=== PATIENT | male | born 1945 | race Caucasian/White ===

== ENCOUNTER 2023-06-11 09:12 | Emergency (ER) | payer OTHER, SELFPAY ==
[2023-06-11 09:21] VITALS: BP 167/80; PULSE 68; RESP 16; TEMP 36; O2SAT 98; BMI 37.1
--- NOTE | 2023-06-11 09:41 | ED_ITS ---
HPI - General Adult General Chief complaint: Extremity Pain/Injury, Upper Stated complaint: Pain in R arm and lower back Time Seen by Provider: 06/11/23 09:21 History of Present Illness HPI narrative: This 77-year-old male comes in reporting diffuse low back pain over the past couple months. He also has had a lump on the lateral aspect of his right upper extremity that is been present for several months at least. He does not report any specific injury event or strenuous activity. He states that he was golfing a few months ago which she does not normally do. He did develop some pain in his low back after doing this. 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 He does not have any pain radiating down his extremities. Related Data Previous Rx's Medication Instructions Recorded cyclobenzaprine 10 mg tablet 10 mg PO TID #15 tabs 06/11/23 ketorolac 10 mg tablet 10 mg PO Q8H 5 days #15 tabs 06/11/23 Allergies Allergy/AdvReac Type Severity Reaction Status Date / Time No Known Drug Allergies Allergy Verified 06/11/23 09:23 Review of Systems Status of ROS: Reports: 10 or more systems reviewed and unremarkable except as noted in History and below Narrative: Constitutional: No fevers, no weight gain or loss. Eyes: No discharge. No vision changes. HENT: No congestion, no sore throat, no ear pain. Cardiovascular: No chest pain, no palpitations. Respiratory: No shortness of breath, no wheezes, no cough. Gastrointestinal: No abdominal pain, no vomiting, no diarrhea. Genitourinary: No dysuria, no hematuria. Musculoskeletal: Normal range of motion. Diffuse low back pain as described above. Skin: No rashes, no pruritis. Neurological: No dizziness, weakness, sensory change, speech change. Endo/Heme/Allergies: No bruising or bleeding. No polydipsia. Pysch: no suicidality, no anxiety, no insomnia. All other systems reviewed and are negative. PFSH PFSH Social History Smoking Status: Never smoker Second hand tobacco smoke exposure: No How often do you have a drink containing alcohol: 4 or more times a week How many standard drinks containing alcohol do you have on a typical day: 1 or 2 How often do you have six or more drinks on one occasion: Never AUDIT-C Alcohol total score: 4 Non-prescribed substance use: denies use Exam Narrative: Exam Narrative: Constitutional: Well-developed, well-nourished, no acute distress. HEENT: Normocephalic, atraumatic. Neck: Normal range of motion. Nontender. Supple. Heart: Regular. No murmurs. Normal rate. Intact distal pulses. Lungs: Clear to auscultation. No chest discomfort. No wheezes, rhonchi, or rales. Abdomen: Normal bowel sounds. Nontender. No rebound tenderness. Genitalia: Deferred. Back: No midline tenderness. Normal range of motion. Pain is localized in the low back region just right of midline. There is no radiating pain down either leg. Straight leg raise is negative bilaterally. Extremities: Normal range of motion. No injury. A spongy soft lump is noted overlying the right deltoid muscle of the right upper extremity. This is movable with a well-defined border typical of a lipoma. Skin: Intact. No rash. Warm. No erythema or pallor. Neurologic: No altered sensation. No weakness. Alert and oriented. Psychiatric: No suicidality. No anxiety or depression. No insomnia. Nursing notes and vitals signs are reviewed. Const: Vital Signs, click to edit/add: Vital Signs - 24 hr 06/11/23 09:21 Temperature 96.8 F L Pulse Rate [Pulse Oximeter] 68 Respiratory Rate 16 Blood Pressure [Ri ght Upper Arm] 167/80 H Pulse Oximetry 98 Oxygen Delivery Me thod Room Air Course Vital Signs Vital signs: Initial Vital Signs Temperature 96.8 F L 06/11/23 09:21 Temperature Source Temporal Artery Scan 06/11/23 09:21 Pulse Rate 68 06/11/23 09:21 Respiratory Rate 16 06/11/23 09:21 Blood Pressure 167/80 H 06/11/23 09:21 Blood Pressure Mean 109 H 06/11/23 09:21 Blood Pressure Position Sitting 06/11/23 09:21 Pulse Oximetry 98 06/11/23 09:21 Oxygen Delivery Method Room Air 06/11/23 09:21 Vital Signs Temperature 96.8 F L 06/11/23 09:21 Pulse Rate 68 06/11/23 09:21 Respiratory Rate 16 06/11/23 09:21 Blood Pressure 167/80 H 06/11/23 09:21 Pulse Oximetry 98 06/11/23 09:21 Oxygen Delivery Method Room Air 06/11/23 09:21 Temperature 96.8 F L 06/11/23 09:21 Pulse Rate 68 06/11/23 09:21 Respiratory Rate 16 06/11/23 09:21 Blood Pressure 167/80 H 06/11/23 09:21 Pulse Oximetry 98 06/11/23 09:21 Oxygen Delivery Method Room Air 06/11/23 09:21 Medical Decision Making MDM Narrative Medical decision making narrative: This patient comes in with concerns about his lump in his right upper arm and low back pain. There was no specific injury event that requires imaging at this time. As for the lump in his right upper arm it is very typical of a lipoma. I stated that x-ray imaging will not help us for either of these matters. I did discuss an option of doing an ultrasound of his right upper extremity which the patient declined. His low back pain is likely myofascial muscle strain. He did received prescriptions for Toradol and Flexeril. Discharge Plan Discharge Clinical Impression: Low back pain, Lipoma Patient Disposition: Home, Self-Care Condition: Stable Additional Instructions: Take medication as needed and directed. Activity as tolerated. Follow up with primary physician as needed or return if worsening. Prescriptions: New cyclobenzaprine 10 mg tablet 10 mg PO TID Qty: 15 0RF ketorolac 10 mg tablet 10 mg PO Q8H 5 Days Qty: 15 0RF Stand Alone Forms: [employer] Info Instructions
== END 2023-06-11 10:02 | disposition home or self-care (01) ==
PROVIDERS: Emergency Provider Emergency Medicine Emergency Medical Services
DX: D17.21 Benign lipomatous neoplasm of skin and subcutaneous tissue of right arm (principal); M54.50 Low back pain, unspecified
CPT/HCPCS: 99283; 99284

== ENCOUNTER 2024-04-12 14:41 | Outpatient (CLI) | payer OTHER, SELFPAY ==
--- OUTSIDE RECORDS SUMMARY | 2024-04-12 14:45 | XMS_ITS | Continuity of Care Document ---
Author Name [facility] Organization [facility] Care Team Providers Care Car Blocker Name Role Phone [facility] Unavailable Unavailable Problems Combined list of problems from Department of Defense and Veterans Affairs facilities. It does not include entries that were removed or entered in error. Problem Status Onset Date Problem Type Date of Resolution Comments Source Anxiety (SCT 72734269) Active Condition [facility] Anxiousness (SNOMED CT 78030075) Active Condition [facility] Atypical Chest Pain (ICD-9-CM 786.59) Active Condition [facility] Chronic kidney disease stage 3 Active Condition [facility] Deep venous thrombosis of lower extremity Active Condition [facility] Depressive Disorder NEC (ICD-9-CM 311.) Active Condition [facility] Erectile Dysfunction (SCT 983696293) Active Condition [facility] Erectile dysfunction (SNOMED CT 505669790) Active Condition [facility] Exposure to potentially hazardous substance (SCT 572931710131966) Active Condition Dec 19 4 Entered By: MARGARITA VIERA Comment: Entered automatically through CARLO Problem List documentation program [facility] Generalized Anxiety Disorder * (ICD-9-CM 300.02) Active Condition [facility] Lipidemia (SNOMED CT 02203654) Active Condition [facility] Major depressive disorder (SNOMED CT 816099783) Active Condition [facility] Mixed Hyperlipidemia (SCT 710750927) Active Condition [facility] Obesity Active Condition [facility] Obstructive Sleep Apnea of Adult (SCT 8306050788661) Active Condition [facility] Obstructive sleep apnea of adult (SNOMED CT 8383661573475) Active Condition [facility] Other and unspecified Sleep Apnea Active Condition [facility] Overweight (SNOMED CT 995529518) Active Condition [facility] Sensorineural hearing loss Active Condition [facility] Subjective tinnitus Active Condition [facility] Viral upper respiratory tract infection Inactive Condition 09/30/2022 [facility] Diagnosis: ICD-10-CM H25.13 Age-related nuclear cataract, bilateral Active Diagnosis [facility] Diagnosis: ICD-10-CM E66.9 Obesity, unspecified Active Diagnosis [facility] Diagnosis: ICD-10-CM Z71.3 Dietary counseling and surveillance Active Diagnosis [facility] Diagnosis: ICD-10-CM N52.9 Male erectile dysfunction, unspecified Active Diagnosis [facility] Diagnosis: ICD-10-CM G47.33 Obstructive sleep apnea (adult) (pediatric) Active Diagnosis [facility] Diagnosis: ICD-10-CM H25.813 Combined forms of age-related cataract, bilateral Active Diagnosis [facility] Medications Combined list of outpatient medications from Department of Defense and Veterans Affairs facilities.Medications provided include 1) outpatient medications from the last 15 months, and 2) patient-reported medications. Medication Details Route Status Patient Instructions Prescription Expires Prescription Number Last Dispense Date Ordering Provider Order Date Order Qty Source ASPIRIN 81MG TAB,EC ASPIRIN 81MG TAB,EC Non-VA TAKE ONE TABLET BY MOUTH Jul 14, 2017 [facility] Document ed by: ALYSA ESPARZA Document ed at: [facility] ORAL ACTIVE Deisy ESPARZA 2016 [facility] HC 1%/NEOMYCIN /POLYMYXIN SUSP,OTIC HC 1%/NEOMY WHTINEY/POLY MYXIN SUSP,DEANNE C Non-VA INSTILL 4 DROPS IN EAR(S) FOUR TIMES A DAY Apr 13, 2018 Non-VA Document ed by: CARLITO GOINS Document ed at: [facility] FRANCO GOINS 2017 [facility] SILDENAFIL CITRATE 100MG TAB SILDENAF [place] CITRATE 100MG TAB Active TAKE ONE-HALF TABLET BY MOUTH ONE HOUR BEFORE SEXUAL RELATION S - FOR ERECTILE DYSFUNCT ION DO NOT TAKE MORE THAN 1 DOSE PER DAY (*90 DAY SUPPLY*) FOR ERECTILE DYSFUNCT ION Sep 30, 2023 9 Sep 30, 2024 [id number] Mar 22, 2024 [facility] 09/30/2024 [id number] VIRA RUFF 2023 [facility] SILDENAFIL CITRATE 100MG TAB SILDENAF [place] CITRATE 100MG TAB Disconti nued TAKE ONE-HALF TABLET BY MOUTH ONE HOUR BEFORE SEXUAL RELATION S - FOR ERECTILE DYSFUNCT ION DO NOT TAKE MORE THAN 1 DOSE PER DAY (*90 DAY SUPPLY*) FOR ERECTILE DYSFUNCT ION Sep 30, 2022 9 Oct 01, 2023 [id number] Sep 19, 2023 [facility] DISCONT INUED 10/01/2023 [id number] Stevan WHITT 2022 9 [facility] SIMVASTATIN 40MG TAB SIMVASTA TIN 40MG TAB Active TAKE ONE TABLET BY MOUTH DAILY AT BEDTIME FOR CHOLESTE ROL FOR CHOLESTE ROL Sep 30, 2023 90 Sep 30, 2024 [id number] A Feb 21, 2024 Ryan RUFF [facility] ORAL ACTIVE 09/30/2024 [id number] VIRA RUFF 2023 90 [facility] [facility] SIMVASTATIN 40MG TAB SIMVASTA TIN 40MG TAB Disconti nued TAKE ONE TABLET BY MOUTH DAILY AT BEDTIME FOR CHOLESTE ROL FOR CHOLESTE ROL Sep 30, 2022 90 Oct 01, 2023 [id number] Aug 23, 2023 [facility] DISCONT INUED 10/01/2023 [id number] Stevan WHITT 2022 90 [facility] Allergies, Adverse Reactions, Alerts Combined list of allergies from Department of Defense and Veterans Affairs facilities. It does not include entries that were removed or entered in error. Substance Category Reaction Severity Reaction type Status Date Reported Comments Source VARDENAFIL Propensity to adverse reactions to drug (finding) Dizziness active 08/14/2015 [facility] Immunizations Combined list of available immunizations from the Department of Defense and Veterans Affairs facilities. Immunization Series Date Given Administered By Site Reaction Lot Number CVX Code Drug Sql Server Bi Developer Status Comments Source PNEUMOCOCCAL CONJUGATE PCV20, POLYSACCHARID E [id number] CONJUGATE, ADJUVANT, PF 2023 Graham ALEMAN RIGHT DELTO ID [id number] 216 complet ed [facility] RSV, BIVALENT, PROTEIN SUBUNIT RSVPREF, DILUENT RECONSTITUTED , 0.5 ML, PF 1 2023 Graham ALEMANDORINA Arechiga LEFT DELTO ID [id number] 305 complet ed [facility] COVID-19 (MODERNA), MRNA, LNP-S, PF, 50 MCG/0.5 ML (AGES 12+ YEARS) 1 2022 312 complet ed [facility] same time as flu shot [facility] INFLUENZA, UNSPECIFIED FORMULATION 2022 88 complet ed [facility] INFLUENZA, INJECTABLE, QUADRIVALENT, PRESERVATIVE FREE 2021 150 complet ed [facility] COVID-19 (MODERNA), MRNA, LNP-S, PF, 100 MCG/0.5ML DOSE OR 50 MCG/0.25ML DOSE 3 2021 LEFT DELTO ID 207 complet ed Lot#: [id number] Mfr: [employer] , [employer] [facility] INFLUENZA, INJECTABLE, QUADRIVALENT, PRESERVATIVE FREE 2020 150 complet ed [facility] ZOSTER RECOMBINANT 2 2020 187 complet ed [facility] ZOSTER RECOMBINANT 1 2020 187 complet ed [facility] COVID-19 (MODERNA), MRNA, LNP-S, PF, 100 MCG/0.5ML DOSE OR 50 MCG/0.25ML DOSE 2 2020 LEFT DELTO ID 207 complet ed Lot#: [id number] Mfr: MODERNA , INCErlinda ROJAS [facility] COVID-19 (MODERNA), MRNA, LNP-S, PF, 100 MCG/0.5ML DOSE OR 50 MCG/0.25ML DOSE 1 2020 LEFT DELTO ID 207 complet ed Lot#: [id number] Mfr: MODERNA , INCErlinda ROJAS [facility] INFLUENZA, INJECTABLE, QUADRIVALENT, PRESERVATIVE FREE 2019 150 complet ed [facility] INFLUENZA, SEASONAL, INJECTABLE, PRESERVATIVE FREE 2018 140 complet ed [place] [facility] INFLUENZA, SEASONAL, INJECTABLE, PRESERVATIVE FREE 2017 140 complet ed [facility] PNEUMOCOCCAL POLYSACCHARID E PPV23 2017 33 complet ed [employer] Lot # [id number] Exp date 09/18/19 [facility] TDAP 2017 115 complet ed [employer] lot # [id number] exp date 06/14/20 [facility] PNEUMOCOCCAL POLYSACCHARID E PPV23 2017 RIGHT DELTO ID 33 complet ed Lot#: [id number] Mfr: [employer] Expiratio n Date: 09/18/19 [facility] INFLUENZA, HIGH DOSE SEASONAL 2016 135 complet ed [facility] INFLUENZA, HIGH DOSE SEASONAL 2015 135 complet ed [facility] PNEUMOCOCCAL CONJUGATE PCV 13 2015 133 complet ed [email or web address] Pharmacut ical, Lot [id number], Exp 06/29 [facility] INFLUENZA, UNSPECIFIED FORMULATION 2015 88 complet ed [facility] INFLUENZA, HIGH DOSE SEASONAL 2014 135 complet ed [facility] INFLUENZA, UNSPECIFIED FORMULATION 2013 88 complet ed [facility] INFLUENZA, UNSPECIFIED FORMULATION 2012 88 complet ed [facility] INFLUENZA, UNSPECIFIED FORMULATION 2011 88 complet ed [facility] INFLUENZA, UNSPECIFIED FORMULATION 2010 88 complet ed [facility] 2010 121 complet ed merck [id number] 5-1-12 [facility] INFLUENZA, UNSPECIFIED FORMULATION 2008 88 complet ed [facility] INFLUENZA, UNSPECIFIED FORMULATION 2007 88 complet ed [facility] INFLUENZA, UNSPECIFIED FORMULATION 2006 88 complet ed [facility] TD(ADULT) UNSPECIFIED FORMULATION 2004 139 complet ed [facility] Results Combined list of recent chemistry, hematology and other laboratory results from Department of Defense and Veterans Affairs, ranging from 15 months to all on record, depending upon the facility. Order Name Results Value Reference Range Date Interpretation Specimen Comments Source HGB A1C HEMOGLOBIN A1C/HEMOGL OBIN.TOTAL IN BLOOD 5.3 4.2 - 6.2 09/23 Specimen Type: BLOOD Comment: HGB A1C: Values obtained from A1C measurement s can vary. HGB A1C: For typical A1C assays, a reported value HBG A1C: of 7.0 could actually be between 6.72 and 7.28 HGB A1C: if measured by a reference method. A reported value of 9.0 HGB A1C: could actually be between 8.73 and 9.27. HGB A1C: Ref: http://www. ngsp.org/[place] Pdata.asp Ordering Provider: GISELE WHITT Report Released Date/Time: Sep 30, 2022 09:57 AM Reporting Lab: [facility] [address] [address] Performing Lab: [facility] [address] [address] [facility] LIPID PANEL A, non-fast ing CHOLESTERO L [MASS/VOLU ME] IN SERUM OR PLASMA 164 mg/dL 09/23 Specimen Type: PLASMA Comment: See EVAL Ordering Provider: GISELE WHITT Report Released Date/Time: Sep 30, 2022 09:57 AM Reporting Lab: [facility] [address] [address] Performing Lab: Ladonna [facility] [address] [address] [facility] LIPID PANEL A, non-fast ing CHOLESTERO L IN HDL [MASS/VOLU ME] IN SERUM OR PLASMA 37 mg/dL 09/23 L Specimen Type: PLASMA Comment: See EVAL Ordering Provider: GISELE WHITT Report Released Date/Time: Sep 30, 2022 09:57 AM Reporting Lab: [facility] [address] [address] Performing Lab: Ladonna [facility] [address] [address] [facility] LIPID PANEL A, non-fast ing CHOLESTERO L IN LDL [MASS/VOLU ME] IN SERUM OR PLASMA BY DIRECT ASSAY 95 mg/dL 09/23 Specimen Type: PLASMA Comment: See EVAL Ordering Provider: GISELE WHITT Report Released Date/Time: Sep 30, 2022 09:57 AM Reporting Lab: [facility]onna RO[facility] [place] [address] Performing Lab: Ladonna ROJAS [facility] [place] [id number] LIPID PANEL A, non-fast ing CHOLESTERO L.TOTAL/CH OLESTEROL IN HDL [MASS RATIO] IN SERUM OR PLASMA 4.4 0 - 4.9 09/23 Specimen Type: PLASMA Comment: See EVAL Ordering Provider: GISELE WHITT Report Released Date/Time: Sep 30, 2022 09:57 AM Reporting Lab: [facility] [place] [address] Performing Lab: Ladonna ROJ[facility] [address] TSH SCREEN PANEL THYROTROPI N [UNITS/VOL UME] IN SERUM OR PLASMA 1.09 u[IU]/mL 0.46 - 3.59 09/23 Specimen Type: SERUM No comment entered. Ordering Provider: GISELE WHITT Report Released Date/Time: Sep 30, 2022 09:57 AM Reporting Lab: Ladonna [facility] [place] [address] Performing Lab: Ladonna ROJ[facility] [address] CBC (AUTO DIFF) LEUKOCYTES [#/VOLUME] IN BLOOD 9.5 10*3/uL 4.00 - 10.60 09/23 Specimen Type: BLOOD No comment entered. Ordering Provider: GISELE WHITT Report Released Date/Time: Sep 30, 2022 09:57 AM Reporting Lab: Ladonna [facility] [place] [address] Performing Lab: Ladonna RO[facility] [place] [address] [place] [address] CBC (AUTO DIFF) ERYTHROCYT ES [#/VOLUME] IN BLOOD BY AUTOMATED COUNT 4.31 10*6/uL 4.23 - 5.75 09/23 Specimen Type: BLOOD No comment entered. Ordering Provider: GISELE WHITT Report Released Date/Time: Sep 30, 2022 09:57 AM Reporting Lab: Ladonna RO[facility] [place] [phone] Performing Lab: Ladonna RO[facility] [place] [phone] [facility] CBC (AUTO DIFF) HEMOGLOBIN [MASS/VOLU ME] IN BLOOD 14.2 g/dL 12.8 - 17.0 09/23 Specimen Type: BLOOD No comment entered. Ordering Provider: GISELE WHITT Report Released Date/Time: Sep 30, 2022 09:57 AM Reporting Lab: Ladonna [facility] [place] [phone] Performing Lab: Ladonna RO[facility] [place] [phone] [facility] CBC (AUTO DIFF) HEMATOCRIT [VOLUME FRACTION] OF BLOOD 41.3 %{vol} 39.3 - 50.0 09/23 Specimen Type: BLOOD No comment entered. Ordering Provider: GISELE WHITT Report Released Date/Time: Sep 30, 2022 09:57 AM Reporting Lab: [facility]onna [facility] [place] [phone] Performing Lab: Ldaonna [facility] [place] [phone] [facility] CBC (AUTO DIFF) MCV [ENTITIC VOLUME] BY AUTOMATED COUNT 95.8 fL 79.7 - 99.5 09/23 Specimen Type: BLOOD No comment entered. Ordering Provider: GISELE WHITT Report Released Date/Time: Sep 30, 2022 09:57 AM Reporting Lab: [facility] [address] [address] Performing Lab: Ladonna ROJAS [facility] [place] [id number] CBC (AUTO DIFF) MCH [ENTITIC MASS] BY AUTOMATED COUNT 32.9 pg 25.5 - 33.6 09/23 Specimen Type: BLOOD No comment entered. Ordering Provider: GISELE WHITT Report Released Date/Time: Sep 30, 2022 09:57 AM Reporting Lab: [facility]onna [facility] [place] [phone] Performing Lab: Ladonna RO[facility] [place] [phone] [place] [address] CBC (AUTO DIFF) MCHC [MASS/VOLU ME] BY AUTOMATED COUNT 34.4 g/dL 30.9 - 35.1 09/23 Specimen Type: BLOOD No comment entered. Ordering Provider: GISELE WHITT Report Released Date/Time: Sep 30, 2022 09:57 AM Reporting Lab: [facility] [place] [phone] Performing Lab: Ladonna [facility] [place] [phone] [facility] CBC (AUTO DIFF) PLATELETS [#/VOLUME] IN BLOOD BY AUTOMATED COUNT 204 10*3/uL 160 - 410 09/23 Specimen Type: BLOOD No comment entered. Ordering Provider: GISELE WHITT Report Released Date/Time: Sep 30, 2022 09:57 AM Reporting Lab: [facility] [place] [phone] Performing Lab: Ladonna [facility] [place] [phone] [facility] CBC (AUTO DIFF) ERYTHROCYT E DISTRIBUTI ON WIDTH [RATIO] BY AUTOMATED COUNT 42.7 fL 37.1 - 49.0 09/23 Specimen Type: BLOOD No comment entered. Ordering Provider: GISELE WHITT Report Released Date/Time: Sep 30, 2022 09:57 AM Reporting Lab: [facility] [place] [phone] Performing Lab: Ladonna [facility] [place] [phone] [facility] CBC (AUTO DIFF) PLATELET MEAN VOLUME [ENTITIC VOLUME] IN BLOOD BY AUTOMATED COUNT 8.9 fL 8.9 - 12.3 09/23 Specimen Type: BLOOD No comment entered. Ordering Provider: GISELE WHITT Report Released Date/Time: Sep 30, 2022 09:57 AM Reporting Lab: [facility] [place] [phone] Performing Lab: Ladonna RO[facility] [place] [phone] [place] [address] CBC (AUTO DIFF) NUCLEATED ERYTHROCYT ES [#/VOLUME] IN BLOOD BY AUTOMATED COUNT 0.00 10*3/uL 0.00 - 0.12 09/23 Specimen Type: BLOOD No comment entered. Ordering Provider: GISELE WHITT Report Released Date/Time: Sep 30, 2022 09:57 AM Reporting Lab: [facility] [place] [phone] Performing Lab: Ladonna RO[facility] [place] [phone] [place] [address] CBC (AUTO DIFF) NUCLEATED ERYTHROCYT ES [PRESENCE] IN BLOOD BY AUTOMATED COUNT 0.0 /100{WBC s} 0.0 - 0.2 09/23 Specimen Type: BLOOD No comment entered. Ordering Provider: GISELE WHITT Report Released Date/Time: Sep 30, 2022 09:57 AM Reporting Lab: [facility] [place] [phone] Performing Lab: Ladonna RO[facility] [place] [phone] [place] [address] CBC (AUTO DIFF) NEUTROPHIL S [#/VOLUME] IN BLOOD BY AUTOMATED COUNT 6.32 10*3/uL 2.2 - 7.4 09/23 Specimen Type: BLOOD No comment entered. Ordering Provider: GISELE WHITT Report Released Date/Time: Sep 30, 2022 09:57 AM Reporting Lab: [facility] [place] [phone] Performing Lab: Ladonna ROJ[facility] [place] [address] [place] [address] CBC (AUTO DIFF) LYMPHOCYTE S [#/VOLUME] IN BLOOD BY AUTOMATED COUNT 1.98 10*3/uL 1.0 - 3.7 09/23 Specimen Type: BLOOD No comment entered. Ordering Provider: GISELE WHITT Report Released Date/Time: Sep 30, 2022 09:57 AM Reporting Lab: [facility] [place] [address] Performing Lab: Ladonna RO[facility] [address] CBC (AUTO DIFF) MONOCYTES [#/VOLUME] IN BLOOD BY AUTOMATED COUNT 0.78 10*3/uL 0.3 - 0.9 09/23 Specimen Type: BLOOD No comment entered. Ordering Provider: GISELE WHITT Report Released Date/Time: Sep 30, 2022 09:57 AM Reporting Lab: [facility] [place] [address] Performing Lab: Ladonna [facility] [address] CBC (AUTO DIFF) EOSINOPHIL S [#/VOLUME] IN BLOOD BY AUTOMATED COUNT 0.19 10*3/uL 0.0 - 0.5 09/23 Specimen Type: BLOOD No comment entered. Ordering Provider: GISELE WHITT Report Released Date/Time: Sep 30, 2022 09:57 AM Reporting Lab: [facility] [place] [phone] Performing Lab: Ladonna [facility] [place] [address] [place] [address] CBC (AUTO DIFF) BASOPHILS [#/VOLUME] IN BLOOD BY AUTOMATED COUNT 0.06 10*3/uL 0.0 - 0.1 09/23 Specimen Type: BLOOD No comment entered. Ordering Provider: GISELE WHITT Report Released Date/Time: Sep 30, 2022 09:57 AM Reporting Lab: [facility] [place] [phone] Performing Lab: Ladonna ROJ[facility] [address] [address] [facility] CBC (AUTO DIFF) NEUTROPHIL S/100 LEUKOCYTES IN BLOOD 66.3 39.3 - 73.5 09/23 Specimen Type: BLOOD No comment entered. Ordering Provider: GISELE WHITT Report Released Date/Time: Sep 30, 2022 09:57 AM Reporting Lab: [facility] [place] [phone] Performing Lab: Ladonna RO[facility] [place] [phone] [facility] CBC (AUTO DIFF) LYMPHOCYTE S/100 LEUKOCYTES IN BLOOD BY AUTOMATED COUNT 20.8 16.2 - 48.2 09/23 Specimen Type: BLOOD No comment entered. Ordering Provider: GISELE WHITT Report Released Date/Time: Sep 30, 2022 09:57 AM Reporting Lab: [facility] [place] [phone] Performing Lab: Ladonna RO[facility] [place] [phone] [facility] CBC (AUTO DIFF) MONOCYTES/ 100 LEUKOCYTES IN BLOOD BY AUTOMATED COUNT 8.2 5.2 - 11.4 09/23 Specimen Type: BLOOD No comment entered. Ordering Provider: GISELE WHITT Report Released Date/Time: Sep 30, 2022 09:57 AM Reporting Lab: [facility] [address] [address] Performing Lab: Ladonna [facility] [address] [address] [facility] CBC (AUTO DIFF) EOSINOPHIL S/100 LEUKOCYTES IN BLOOD BY AUTOMATED COUNT 2.0 0.4 - 7.6 09/23 Specimen Type: BLOOD No comment entered. Ordering Provider: GISELE WHITT Report Released Date/Time: Sep 30, 2022 09:57 AM Reporting Lab: [facility] [place] [address] Performing Lab: Ladonna [facility] [address] CBC (AUTO DIFF) BASOPHILS/ 100 LEUKOCYTES IN BLOOD BY AUTOMATED COUNT 0.6 0.1 - 1.2 09/23 Specimen Type: BLOOD No comment entered. Ordering Provider: GISELE WHITT Report Released Date/Time: Sep 30, 2022 09:57 AM Reporting Lab: [facility] [place] [address] Performing Lab: Ladonna [facility] [address] CBC (AUTO DIFF) IMMATURE GRANULOCYT ES [#/VOLUME] IN BLOOD BY AUTOMATED COUNT 0.20 10*3/uL 0.0 - 0.1 09/23 H Specimen Type: BLOOD No comment entered. Ordering Provider: GISELE WHITT Report Released Date/Time: Sep 30, 2022 09:57 AM Reporting Lab: [facility] [place] [address] Performing Lab: Ladonna [facility] [address] CBC (AUTO DIFF) IMMATURE GRANULOCYT ES/100 LEUKOCYTES IN BLOOD 2.1 0.0 - 0.7 09/23 H Specimen Type: BLOOD No comment entered. Ordering Provider: GISELE WHITT Report Released Date/Time: Sep 30, 2022 09:57 AM Reporting Lab: [facility] [place] [address] Performing Lab: Ladonna RO[facility] [place] [address] [place] [address] CBC (AUTO DIFF) SERVICE COMMENT DONE 09/23 Specimen Type: BLOOD No comment entered. Ordering Provider: JOSE EDUARDO,GISELE IE L Report Released Date/Time: Sep 30, 2022 09:57 AM Reporting Lab: [facility] [address] [phone] Performing Lab: [facility] [address] [address] [facility] COMPREHE NSIVE METABOLI C PANEL SODIUM [MOLES/VOL UME] IN SERUM OR PLASMA 143 meq/L 136 - 144 09/23 Specimen Type: PLASMA Comment: See EVAL Ordering Provider: GISELE WHITT Report Released Date/Time: Sep 30, 2022 09:57 AM Reporting Lab: [facility] [address] [address] Performing Lab: Ladonna [facility] [address] [address] [facility] COMPREHE NSIVE METABOLI C PANEL POTASSIUM [MOLES/VOL UME] IN SERUM OR PLASMA 4.2 meq/L 3.6 - 5.1 09/23 Specimen Type: PLASMA Comment: See EVAL Ordering Provider: GISELE WHITT Report Released Date/Time: Sep 30, 2022 09:57 AM Reporting Lab: [facility] [address] [address] Performing Lab: [facility] [address] [address] [facility] COMPREHE NSIVE METABOLI C PANEL CHLORIDE [MOLES/VOL UME] IN SERUM OR PLASMA 107 meq/L 98 - 107 09/23 Specimen Type: PLASMA Comment: See EVAL Ordering Provider: GISELE WHITT Report Released Date/Time: Sep 30, 2022 09:57 AM Reporting Lab: [facility] [address] [address] Performing Lab: [facility] [address] [address] [facility] COMPREHE NSIVE METABOLI C PANEL CARBON DIOXIDE, TOTAL [MOLES/VOL UME] IN SERUM OR PLASMA 26 meq/L 22 - 32 09/23 Specimen Type: PLASMA Comment: See EVAL Ordering Provider: GISELE WHITT Report Released Date/Time: Sep 30, 2022 09:57 AM Reporting Lab: [facility] [address] [address] Performing Lab: [facility] [address] [address] [facility] COMPREHE NSIVE METABOLI C PANEL ANION GAP IN SERUM OR PLASMA 10 meq/L 4 - 13 09/23 Specimen Type: PLASMA Comment: See EVAL Ordering Provider: GISELE WHITT Report Released Date/Time: Sep 30, 2022 09:57 AM Reporting Lab: [facility] [address] [address] Performing Lab: [facility] [address] [address] [facility] COMPREHE NSIVE METABOLI C PANEL GLUCOSE [MASS/VOLU ME] IN SERUM OR PLASMA 101 mg/dL 72 - 105 09/23 Specimen Type: PLASMA Comment: See EVAL Ordering Provider: GISELE WHITT Report Released Date/Time: Sep 30, 2022 09:57 AM Reporting Lab: [facility] [address] [address] Performing Lab: [facility] OF [address] [address] [facility] COMPREHE NSIVE METABOLI C PANEL UREA NITROGEN [MASS/VOLU ME] IN SERUM OR PLASMA 22 mg/dL 7 - 25 09/23 Specimen Type: PLASMA Comment: See EVAL Ordering Provider: GISELE WHITT Report Released Date/Time: Sep 30, 2022 09:57 AM Reporting Lab: [facility] OF [address] [address] Performing Lab: [facility] OF [address] [address] [facility] COMPREHE NSIVE METABOLI C PANEL CREATININE [MASS/VOLU ME] IN SERUM OR PLASMA 1.34 mg/dL 0.7 - 1.3 09/23 H Specimen Type: PLASMA Comment: See EVAL Ordering Provider: GISELE WHITT Report Released Date/Time: Sep 30, 2022 09:57 AM Reporting Lab: [facility] OF [address] [address] Performing Lab: [facility] OF [place] [id number] [facility] COMPREHE NSIVE METABOLI C PANEL CALCIUM [MASS/VOLU ME] IN SERUM OR PLASMA 8.8 mg/dL 8.6 - 10.4 09/23 Specimen Type: PLASMA Comment: See EVAL Ordering Provider: GISELE WHITT Report Released Date/Time: Sep 30, 2022 09:57 AM Reporting Lab: [facility] [address] [address] Performing Lab: [facility] [address] [address] [facility] COMPREHE NSIVE METABOLI C PANEL PROTEIN [MASS/VOLU ME] IN SERUM OR PLASMA 6.7 g/dL 6.0 - 8.2 09/23 Specimen Type: PLASMA Comment: See EVAL Ordering Provider: GISELE HWITT Report Released Date/Time: Sep 30, 2022 09:57 AM Reporting Lab: [facility] [address] [address] Performing Lab: [facility] [address] [address] [facility] COMPREHE NSIVE METABOLI C PANEL ALBUMIN [MASS/VOLU ME] IN SERUM OR PLASMA 4.3 g/dL 3.5 - 5.0 09/23 Specimen Type: PLASMA Comment: See EVAL Ordering Provider: GISELE WHITT Report Released Date/Time: Sep 30, 2022 09:57 AM Reporting Lab: [facility] [address] [address] Performing Lab: [facility] [address] [address] [facility] COMPREHE NSIVE METABOLI C PANEL ALKALINE PHOSPHATAS E [ENZYMATIC ACTIVITY/V OLUME] IN SERUM OR PLASMA 93 U/L 35 - 104 09/23 Specimen Type: PLASMA Comment: See EVAL Ordering Provider: GISELE WHITT Report Released Date/Time: Sep 30, 2022 09:57 AM Reporting Lab: [facility] [address] [address] Performing Lab: [facility] [address] [address] [facility] COMPREHE NSIVE METABOLI C PANEL ASPARTATE AMINOTRANS FERASE [ENZYMATIC ACTIVITY/V OLUME] IN SERUM OR PLASMA 22 U/L 13 - 36 09/23 Specimen Type: PLASMA Comment: See EVAL Ordering Provider: GISELE WHITT Report Released Date/Time: Sep 30, 2022 09:57 AM Reporting Lab: [facility] [address] [address] Performing Lab: [facility] [address] [address] [facility] COMPREHE NSIVE METABOLI C PANEL ALANINE AMINOTRANS FERASE [ENZYMATIC ACTIVITY/V OLUME] IN SERUM OR PLASMA 18 U/L 7 - 49 09/23 Specimen Type: PLASMA Comment: See EVAL Ordering Provider: GISELE WHITT Report Released Date/Time: Sep 30, 2022 09:57 AM Reporting Lab: [facility] [address] [address] Performing Lab: [facility] [address] [address] [facility] COMPREHE NSIVE METABOLI C PANEL BILIRUBIN. TOTAL [MASS/VOLU ME] IN SERUM OR PLASMA 0.4 mg/dL 0.2 - 1.3 09/23 Specimen Type: PLASMA Comment: See EVAL Ordering Provider: GISELE WHITT Report Released Date/Time: Sep 30, 2022 09:57 AM Reporting Lab: [facility] [address] [address] Performing Lab: [facility] [place] [phone] [place] [address] COMPREHE NSIVE METABOLI C PANEL GLOMERULAR FILTRATION RATE/1.73 SQ M.PREDICTE D [VOLUME RATE/AREA] IN SERUM, PLASMA OR BLOOD BY CREATININE -BASED FORMULA (CKD-EPI 2020) 55 09/23 L Specimen Type: PLASMA Comment: See EVAL Ordering Provider: GISELE WHITT Report Released Date/Time: Sep 30, 2022 09:57 AM Reporting Lab: [facility] [place] [phone] Performing Lab: [facility] [place] [phone] [place] [address] URINALYS IS, REFLEX C&S IF INDICATE D COLOR OF URINE Yellow 09/23 Specimen Type: URINE Comment: Urine chemistry testing performed on [employer] MAX AX-4030. Ordering Provider: GISELE WHITT Report Released Date/Time: Sep 30, 2022 09:57 AM Reporting Lab: [facility] [address] [address] Performing Lab: [facility] [place] [phone] [facility] URINALYS IS, REFLEX C&S IF INDICATE D SPECIFIC GRAVITY OF URINE 1.031 1.001 - 1.035 09/23 Specimen Type: URINE Comment: Urine chemistry testing performed on [employer] MAX AX-4030. Ordering Provider: GISELE WHITT Report Released Date/Time: Sep 30, 2022 09:57 AM Reporting Lab: [facility] [address] [address] Performing Lab: [facility] [address] [address] [facility] URINALYS IS, REFLEX C&S IF INDICATE D PH OF URINE 5.5 5.0 - 7.0 09/23 Specimen Type: URINE Comment: Urine chemistry testing performed on [facility] AX-4030. Ordering Provider: GISELE WHITT Report Released Date/Time: Sep 30, 2022 09:57 AM Reporting Lab: [facility] [place] [address] Performing Lab: [facility] [place] [phone] [place] [address] URINALYS IS, REFLEX C&S IF INDICATE D LEUKOCYTES [#/AREA] IN URINE SEDIMENT BY MICROSCOPY HIGH POWER FIELD 2 /[HPF] 0 - 5 09/23 Specimen Type: URINE Comment: Urine chemistry testing performed on [facility] AX-403. Ordering Provider: GISELE WHITT Report Released Date/Time: Sep 30, 2022 09:57 AM Reporting Lab: [facility] [place] [phone] Performing Lab: [facility] [place] [phone] [place] [address] URINALYS IS, REFLEX C&S IF INDICATE D HYALINE CASTS [#/AREA] IN URINE SEDIMENT BY MICROSCOPY LOW POWER FIELD 2 /[LPF] - 2 09/23 Specimen Type: URINE Comment: Urine chemistry testing performed on [facility] AX-403. Ordering Provider: GISELE WHITT Report Released Date/Time: Sep 30, 2022 09:57 AM Reporting Lab: [facility] [place] [phone] Performing Lab: [facility] [place] [phone] [place] [address] URINALYS IS, REFLEX C&S IF INDICATE D ERYTHROCYT ES [#/VOLUME] IN URINE SEDIMENT BY MICROSCOPY HIGH POWER FIELD 1 /[HPF] 0 - 3 09/23 Specimen Type: URINE Comment: Urine chemistry testing performed on [facility] AX-4030. Ordering Provider: GISELE WHITT Report Released Date/Time: Sep 30, 2022 09:57 AM Reporting Lab: [facility] [address] [address] Performing Lab: [facility] [address] [address] [facility] URINALYS IS, REFLEX C&S IF INDICATE D APPEARANCE OF URINE CLEAR 09/23 Specimen Type: URINE Comment: Urine chemistry testing performed on [facility] AX-403. Ordering Provider: GISELE WHITT Report Released Date/Time: Sep 30, 2022 09:57 AM Reporting Lab: [facility] [address] [address] Performing Lab: [facility] [address] [address] [facility] URINALYS IS, REFLEX C&S IF INDICATE D ERYTHROCYT ES [PRESENCE] IN URINE Negative mg/dL 09/23 Specimen Type: URINE Comment: Urine chemistry testing performed on [facility] AX-4030. Ordering Provider: GISELE WHITT Report Released Date/Time: Sep 30, 2022 09:57 AM Reporting Lab: [facility] [address] [address] Performing Lab: [facility] [address] [address] [facility] URINALYS IS, REFLEX C&S IF INDICATE D LEUKOCYTE ESTERASE [PRESENCE] IN URINE BY TEST STRIP Negative - 25 09/23 Specimen Type: URINE Comment: Urine chemistry testing performed on [facility] AX-4030. Ordering Provider: GISELE WHITT Report Released Date/Time: Sep 30, 2022 09:57 AM Reporting Lab: [facility] [address] [address] Performing Lab: [facility] [address] [address] [facility] URINALYS IS, REFLEX C&S IF INDICATE D PROTEIN [MASS/VOLU ME] IN URINE TRACEmg/ dL - 20 09/23 Specimen Type: URINE Comment: Urine chemistry testing performed on [facility] AX-4030. Ordering Provider: GISELE WHITT Report Released Date/Time: Sep 30, 2022 09:57 AM Reporting Lab: [facility] [place] [phone] Performing Lab: [facility] [place] [phone] [place] [address] URINALYS IS, REFLEX C&S IF INDICATE D GLUCOSE [MASS/VOLU ME] IN URINE BY TEST STRIP Normalmg /dL - 50 09/23 Specimen Type: URINE Comment: Urine chemistry testing performed on [facility] AX-4030. Ordering Provider: GISELE WHITT Report Released Date/Time: Sep 30, 2022 09:57 AM Reporting Lab: [facility] [place] [phone] Performing Lab: [facility] [place] [phone] [place] [address] URINALYS IS, REFLEX C&S IF INDICATE D KETONES [MASS/VOLU ME] IN URINE BY TEST STRIP Negative mg/dL 09/23 Specimen Type: URINE Comment: Urine chemistry testing performed on [facility] AX-4030. Ordering Provider: GISELE WHITT Report Released Date/Time: Sep 30, 2022 09:57 AM Reporting Lab: [facility] [address] [address] Performing Lab: [facility] [place] [phone] [place] [address] URINALYS IS, REFLEX C&S IF INDICATE D BILIRUBIN. TOTAL [PRESENCE] IN URINE BY TEST STRIP Negative mg/dL 09/23 Specimen Type: URINE Comment: Urine chemistry testing performed on [facility] AX-4030. Ordering Provider: GISELE WHITT Report Released Date/Time: Sep 30, 2022 09:57 AM Reporting Lab: [facility] [place] [phone] Performing Lab: [facility] [address] [address] [facility] URINALYS IS, REFLEX C&S IF INDICATE D NITRITE [PRESENCE] IN URINE BY TEST STRIP Negative mg/dL 09/23 Specimen Type: URINE Comment: Urine chemistry testing performed on [employer] AX-4030. Ordering Provider: GISELE WHITT Report Released Date/Time: Sep 30, 2022 09:57 AM Reporting Lab: [facility] [address] [address] Performing Lab: [facility] [place] [phone] [facility] URINALYS IS, REFLEX C&S IF INDICATE D UROBILINOG EN [MASS/VOLU ME] IN URINE Normalmg /dL 09/23 Specimen Type: URINE Comment: Urine chemistry testing performed on [facility] AX-4030. Ordering Provider: GISELE WHITT Report Released Date/Time: Sep 30, 2022 09:57 AM Reporting Lab: [facility] [address] [address] Performing Lab: [facility] [place] [phone] [facility] DIABETIC NEPHROPA THY SCREEN MICROALBUM IN [MASS/VOLU ME] IN URINE <0.5mg/d L <1.9 - 1.9 09/23 Specimen Type: URINE Comment: UNABLE TO CALCULATE Ordering Provider: GISELE WHITT Report Released Date/Time: Aug 18, 2022 08:36 AM Reporting Lab: [facility] [address] [address] Performing Lab: [facility] [place] [phone] [facility] DIABETIC NEPHROPA THY SCREEN MICROALBUM IN/CREATIN INE [MASS RATIO] IN URINE comment <30 - 30 09/23 Specimen Type: URINE Comment: UNABLE TO CALCULATE Ordering Provider: GISELE WHITT Report Released Date/Time: Aug 18, 2022 08:36 AM Reporting Lab: [facility] [place] [phone] Performing Lab: [facility] [place] [id number] [place] [address] DIABETIC NEPHROPA THY SCREEN CREATININE [MASS/VOLU ME] IN URINE 117.30 mg/dL 10 - 300 09/23 Specimen Type: URINE Comment: UNABLE TO CALCULATE Ordering Provider: GISELE WHITT Report Released Date/Time: Aug 18, 2022 08:36 AM Reporting Lab: [facility] [place] [address] Performing Lab: [facility] [place] [id number] [place] [address] CBC (AUTO DIFF) LEUKOCYTES [#/VOLUME] IN BLOOD 7.4 10*3/uL 4.00 - 10.60 09/23 Specimen Type: BLOOD No comment entered. Ordering Provider: GISELE WHITT Report Released Date/Time: Aug 18, 2022 08:36 AM Reporting Lab: [facility] [place] [address] Performing Lab: [facility] [place] [phone] [place] [address] CBC (AUTO DIFF) ERYTHROCYT ES [#/VOLUME] IN BLOOD BY AUTOMATED COUNT 4.46 10*6/uL 4.23 - 5.75 09/23 Specimen Type: BLOOD No comment entered. Ordering Provider: GISELE WHITT Report Released Date/Time: Aug 18, 2022 08:36 AM Reporting Lab: [facility] [place] [address] Performing Lab: [facility] [place] [phone] [facility] CBC (AUTO DIFF) HEMOGLOBIN [MASS/VOLU ME] IN BLOOD 14.3 g/dL 12.8 - 17.0 09/23 Specimen Type: BLOOD No comment entered. Ordering Provider: GISELE WHITT Report Released Date/Time: Aug 18, 2022 08:36 AM Reporting Lab: [facility] [address] Performing Lab: [facility] [place] [id number] [place] [address] CBC (AUTO DIFF) HEMATOCRIT [VOLUME FRACTION] OF BLOOD 43.6 %{vol} 39.3 - 50.0 09/23 Specimen Type: BLOOD No comment entered. Ordering Provider: GISELE WHITT Report Released Date/Time: Aug 18, 2022 08:36 AM Reporting Lab: [facility] [place] [address] Performing Lab: [facility] [place] [address] [place] [address] CBC (AUTO DIFF) MCV [ENTITIC VOLUME] BY AUTOMATED COUNT 97.8 fL 79.7 - 99.5 09/23 Specimen Type: BLOOD No comment entered. Ordering Provider: GISELE WHITT Report Released Date/Time: Aug 18, 2022 08:36 AM Reporting Lab: [facility] [place] [address] Performing Lab: [facility] [address] CBC (AUTO DIFF) MCH [ENTITIC MASS] BY AUTOMATED COUNT 32.1 pg 25.5 - 33.6 09/23 Specimen Type: BLOOD No comment entered. Ordering Provider: GISELE WHITT Report Released Date/Time: Aug 18, 2022 08:36 AM Reporting Lab: [facility] [place] [address] Performing Lab: [facility] [place] [id number] [place] [address] CBC (AUTO DIFF) MCHC [MASS/VOLU ME] BY AUTOMATED COUNT 32.8 g/dL 30.9 - 35.1 09/23 Specimen Type: BLOOD No comment entered. Ordering Provider: GISELE WHITT Report Released Date/Time: Aug 18, 2022 08:36 AM Reporting Lab: [facility] [place] [phone] Performing Lab: [facility] [place] [phone] [facility] CBC (AUTO DIFF) PLATELETS [#/VOLUME] IN BLOOD BY AUTOMATED COUNT 180 10*3/uL 160 - 410 09/23 Specimen Type: BLOOD No comment entered. Ordering Provider: GISELE WHITT Report Released Date/Time: Aug 18, 2022 08:36 AM Reporting Lab: [facility] [place] [phone] Performing Lab: [facility] [place] [phone] [facility] CBC (AUTO DIFF) ERYTHROCYT E DISTRIBUTI ON WIDTH [RATIO] BY AUTOMATED COUNT 43.8 fL 37.1 - 49.0 09/23 Specimen Type: BLOOD No comment entered. Ordering Provider: GISELE WHITT Report Released Date/Time: Aug 18, 2022 08:36 AM Reporting Lab: [facility] [address] [address] Performing Lab: [facility] [place] [phone] [facility] CBC (AUTO DIFF) PLATELET MEAN VOLUME [ENTITIC VOLUME] IN BLOOD BY AUTOMATED COUNT 9.5 fL 8.9 - 12.3 09/23 Specimen Type: BLOOD No comment entered. Ordering Provider: GISELE WHITT Report Released Date/Time: Aug 18, 2022 08:36 AM Reporting Lab: [facility] [address] [address] Performing Lab: [facility] [address] [address] [facility] CBC (AUTO DIFF) NUCLEATED ERYTHROCYT ES [#/VOLUME] IN BLOOD BY AUTOMATED COUNT 0.00 10*3/uL 0.00 - 0.12 09/23 Specimen Type: BLOOD No comment entered. Ordering Provider: GISELE WHITT Report Released Date/Time: Aug 18, 2022 08:36 AM Reporting Lab: [facility] [place] [address] Performing Lab: [facility] [address] CBC (AUTO DIFF) NUCLEATED ERYTHROCYT ES [PRESENCE] IN BLOOD BY AUTOMATED COUNT 0.0 /100{WBC s} 0.0 - 0.2 09/23 Specimen Type: BLOOD No comment entered. Ordering Provider: GISELE WHITT Report Released Date/Time: Aug 18, 2022 08:36 AM Reporting Lab: [facility] [place] [address] Performing Lab: [facility] [address] CBC (AUTO DIFF) NEUTROPHIL S [#/VOLUME] IN BLOOD BY AUTOMATED COUNT 5.00 10*3/uL 2.2 - 7.4 09/23 Specimen Type: BLOOD No comment entered. Ordering Provider: GISELE WHITT Report Released Date/Time: Aug 18, 2022 08:36 AM Reporting Lab: [facility] [place] [address] Performing Lab: [facility] [address] CBC (AUTO DIFF) LYMPHOCYTE S [#/VOLUME] IN BLOOD BY AUTOMATED COUNT 1.70 10*3/uL 1.0 - 3.7 09/23 Specimen Type: BLOOD No comment entered. Ordering Provider: GISELE WHITT Report Released Date/Time: Aug 18, 2022 08:36 AM Reporting Lab: [facility] [place] [address] Performing Lab: [facility] [place] [id number] [place] [address] CBC (AUTO DIFF) MONOCYTES [#/VOLUME] IN BLOOD BY AUTOMATED COUNT 0.52 10*3/uL 0.3 - 0.9 09/23 Specimen Type: BLOOD No comment entered. Ordering Provider: GISELE WHITT Report Released Date/Time: Aug 18, 2022 08:36 AM Reporting Lab: [facility] [place] [address] Performing Lab: [facility] [place] [address] [place] [address] CBC (AUTO DIFF) EOSINOPHIL S [#/VOLUME] IN BLOOD BY AUTOMATED COUNT 0.09 10*3/uL 0.0 - 0.5 09/23 Specimen Type: BLOOD No comment entered. Ordering Provider: GISELE WHITT Report Released Date/Time: Aug 18, 2022 08:36 AM Reporting Lab: [facility] [place] [address] Performing Lab: [facility] [address] CBC (AUTO DIFF) BASOPHILS [#/VOLUME] IN BLOOD BY AUTOMATED COUNT 0.04 10*3/uL 0.0 - 0.1 09/23 Specimen Type: BLOOD No comment entered. Ordering Provider: GISELE WHITT Report Released Date/Time: Aug 18, 2022 08:36 AM Reporting Lab: [facility] [place] [address] Performing Lab: [facility] [place] [address] [place] [address] CBC (AUTO DIFF) NEUTROPHIL S/100 LEUKOCYTES IN BLOOD 67.9 39.3 - 73.5 09/23 Specimen Type: BLOOD No comment entered. Ordering Provider: GISELE WHITT Report Released Date/Time: Aug 18, 2022 08:36 AM Reporting Lab: [facility] [place] [id number] Performing Lab: [facility] [address] [address] [facility] CBC (AUTO DIFF) LYMPHOCYTE S/100 LEUKOCYTES IN BLOOD BY AUTOMATED COUNT 23.0 16.2 - 48.2 09/23 Specimen Type: BLOOD No comment entered. Ordering Provider: GISELE WHITT Report Released Date/Time: Aug 18, 2022 08:36 AM Reporting Lab: [facility] [address] [address] Performing Lab: [facility] [address] [address] [facility] CBC (AUTO DIFF) MONOCYTES/ 100 LEUKOCYTES IN BLOOD BY AUTOMATED COUNT 7.0 5.2 - 11.4 09/23 Specimen Type: BLOOD No comment entered. Ordering Provider: GISELE WHITT Report Released Date/Time: Aug 18, 2022 08:36 AM Reporting Lab: [facility] [address] [address] Performing Lab: [facility] [address] [address] [facility] CBC (AUTO DIFF) EOSINOPHIL S/100 LEUKOCYTES IN BLOOD BY AUTOMATED COUNT 1.2 0.4 - 7.6 09/23 Specimen Type: BLOOD No comment entered. Ordering Provider: GISELE WHITT Report Released Date/Time: Aug 18, 2022 08:36 AM Reporting Lab: [facility] [address] [address] Performing Lab: [facility] [address] [address] [facility] CBC (AUTO DIFF) BASOPHILS/ 100 LEUKOCYTES IN BLOOD BY AUTOMATED COUNT 0.5 0.1 - 1.2 09/23 Specimen Type: BLOOD No comment entered. Ordering Provider: GISELE WHITT Report Released Date/Time: Aug 18, 2022 08:36 AM Reporting Lab: [facility] [address] [address] Performing Lab: [facility] [place] [id number] [place] [address] CBC (AUTO DIFF) IMMATURE GRANULOCYT ES [#/VOLUME] IN BLOOD BY AUTOMATED COUNT 0.03 10*3/uL 0.0 - 0.1 09/23 Specimen Type: BLOOD No comment entered. Ordering Provider: GISELE WHITT Report Released Date/Time: Aug 18, 2022 08:36 AM Reporting Lab: [facility] [place] [phone] Performing Lab: [facility] [address] CBC (AUTO DIFF) IMMATURE GRANULOCYT ES/100 LEUKOCYTES IN BLOOD 0.4 0.0 - 0.7 09/23 Specimen Type: BLOOD No comment entered. Ordering Provider: GISELE WHITT Report Released Date/Time: Aug 18, 2022 08:36 AM Reporting Lab: [facility] [place] [phone] Performing Lab: [facility] [address] CBC (AUTO DIFF) SERVICE COMMENT DONE 09/23 Specimen Type: BLOOD No comment entered. Ordering Provider: GISELE WHITT Report Released Date/Time: Aug 18, 2022 08:36 AM Reporting Lab: [facility] [place] [address] Performing Lab: [facility] [place] [id number] [place] [address] BASIC METABOLI C PANEL SODIUM [MOLES/VOL UME] IN SERUM OR PLASMA 142 meq/L 136 - 144 09/23 Specimen Type: PLASMA Comment: See EVAL Ordering Provider: GISELE WHITT Report Released Date/Time: Aug 18, 2022 08:36 AM Reporting Lab: [facility] [address] [address] Performing Lab: [facility] [address] [address] [facility] BASIC METABOLI C PANEL POTASSIUM [MOLES/VOL UME] IN SERUM OR PLASMA 4.7 meq/L 3.6 - 5.1 09/23 Specimen Type: PLASMA Comment: See EVAL Ordering Provider: GISELE WHITT Report Released Date/Time: Aug 18, 2022 08:36 AM Reporting Lab: [facility] [address] [address] Performing Lab: [facility] [address] [address] [facility] BASIC METABOLI C PANEL CHLORIDE [MOLES/VOL UME] IN SERUM OR PLASMA 109 meq/L 98 - 107 09/23 H Specimen Type: PLASMA Comment: See EVAL Ordering Provider: GISELE WHITT Report Released Date/Time: Aug 18, 2022 08:36 AM Reporting Lab: [facility] [address] [address] Performing Lab: [facility] [address] [address] [facility] BASIC METABOLI C PANEL CARBON DIOXIDE, TOTAL [MOLES/VOL UME] IN SERUM OR PLASMA 26 meq/L 22 - 32 09/23 Specimen Type: PLASMA Comment: See EVAL Ordering Provider: GISELE WHITT Report Released Date/Time: Aug 18, 2022 08:36 AM Reporting Lab: [facility] [address] [address] Performing Lab: [facility] [address] [address] [facility] BASIC METABOLI C PANEL ANION GAP IN SERUM OR PLASMA 7 meq/L 4 - 13 09/23 Specimen Type: PLASMA Comment: See EVAL Ordering Provider: GISELE WHITT Report Released Date/Time: Aug 18, 2022 08:36 AM Reporting Lab: [facility] [address] [address] Performing Lab: [facility] [address] [address] [facility] BASIC METABOLI C PANEL GLUCOSE [MASS/VOLU ME] IN SERUM OR PLASMA 90 mg/dL 72 - 105 09/23 Specimen Type: PLASMA Comment: See EVAL Ordering Provider: GISELE WHITT Report Released Date/Time: Aug 18, 2022 08:36 AM Reporting Lab: [facility] [address] [address] Performing Lab: [facility] [address] [address] [facility] BASIC METABOLI C PANEL UREA NITROGEN [MASS/VOLU ME] IN SERUM OR PLASMA 27 mg/dL 7 - 25 09/23 H Specimen Type: PLASMA Comment: See EVAL Ordering Provider: GISELE WHITT Report Released Date/Time: Aug 18, 2022 08:36 AM Reporting Lab: [facility] [address] [address] Performing Lab: [facility] [address] [address] [facility] BASIC METABOLI C PANEL CREATININE [MASS/VOLU ME] IN SERUM OR PLASMA 1.36 mg/dL 0.7 - 1.3 09/23 H Specimen Type: PLASMA Comment: See EVAL Ordering Provider: GISELE WHITT Report Released Date/Time: Aug 18, 2022 08:36 AM Reporting Lab: [facility] [address] [address] Performing Lab: [facility] [address] [address] [facility] BASIC METABOLI C PANEL CALCIUM [MASS/VOLU ME] IN SERUM OR PLASMA 9.3 mg/dL 8.6 - 10.4 09/23 Specimen Type: PLASMA Comment: See EVAL Ordering Provider: GISELE WHITT Report Released Date/Time: Aug 18, 2022 08:36 AM Reporting Lab: [facility] [address] [address] Performing Lab: [facility] OF [place] [id number] [place] [address] BASIC METABOLI C PANEL GLOMERULAR FILTRATION RATE/1.73 SQ M.PREDICTE D [VOLUME RATE/AREA] IN SERUM, PLASMA OR BLOOD BY CREATININE -BASED FORMULA (CKD-EPI 2020) 54 09/23 L Specimen Type: PLASMA Comment: See EVAL Ordering Provider: GISELE WHITT Report Released Date/Time: Aug 18, 2022 08:36 AM Reporting Lab: [facility] [address] [address] Performing Lab: [facility] [place] [id number] [place] [address] AST ASPARTATE AMINOTRANS FERASE [ENZYMATIC ACTIVITY/V OLUME] IN SERUM OR PLASMA 22 U/L 13 - 36 09/23 Specimen Type: PLASMA Comment: See EVAL Ordering Provider: GISELE WHITT Report Released Date/Time: Aug 18, 2022 08:36 AM Reporting Lab: [facility] [address] [address] Performing Lab: [facility] OF [address] [address] [facility] Vital Signs Combined list of inpatient and outpatient Vital Signs from Department of Defense and [facility], ranging from 12 months to all on record, depending upon the facility. Vital Sign Value Date Comments Source Encounters Combined list of: 1) Encounters from Department of Veterans Affairs facilities going back up to thelast 18 months. 2) Encounters from the Department of Defense facilities going back up to 280 months. Location Location Details Encounter Type Encounter Number Reason For Visit Attending Provider ADM Date DC Date Status Disposition Source MARGARETTE MARTIN [facility] Outpatient Encounter [id number] 10/15 [facility] EYE EXAM&TX ESTAB PT 1/>VST [id number] Diagnos is: ICD-10- CM H25.813 Combine d forms of age-rel ated catarac t, bilater al
GERMAN WARD 12/14 [facility] [place] [facility] Outpatient Encounter [id number] 03/02 [place] [facility] C.W. KELSEY ROJAS [facility] Outpatient Encounter [id number] 06/13 C.Allie ROJAS [facility] C.Allie ROJAS [facility] Outpatient Encounter [id number] [facility] [place] 06[facility]30 C.Allie ROJAS [facility] C.W. KELSEY ROJAS [facility] Outpatient Encounter [id number] [facility] 07/21 C.Allie ROJAS [facility] C.Eric. KELSEY RO[facility]AS [facility] Outpatient Encounter [id number] 08/06 C.Allie ROJAS [facility] HC PRO PHONE CALL 5-10 MIN [id number] Diagnos is: ICD-10- CM N52.9 Male erectil e dysfunc tion, unspeci fied
JOSE MAGANA 08/11 [facility] C.Allie ROJAS [facility] Outpatient Encounter [id number] [facility] 09/22 C.Allie ROJAS [facility] C.Allie ROJAS [facility] Outpatient Encounter [id number] [facility] 09/23 C.Allie ROJAS [facility] HC PRO PHONE CALL 5-10 MIN [id number] Diagnos is: ICD-10- CM G47.33 Obstruc tive sleep apnea (adult) (pediat ofelia)
YVONNE PAYAN 09/24 [facility] HC PRO PHONE CALL 5-10 MIN [id number] Diagnos is: ICD-10- CM N52.9 Male erectil e dysfunc tion, unspeci fied
JOSE MAGANA 09/29 [facility] OFFICE O/P EST LOW 20 MIN [id number] Diagnos is: ICD-10- CM E66.9 Obesity , unspeci fied
SHAQUILLE WHITT 09/30 [facility] HC PRO PHONE CALL 21-30 MIN [id number] Diagnos is: ICD-10- CM E66.9 Obesity , unspeci fied
SHAVON JANUARYGIFTY Y N 10/27 [facility] C.Allie ROJAS [facility] Outpatient Encounter [id number] 10/27 Ladonna ROJAS [facility] C.Allie ROJAS [facility] HC PRO PHONE CALL 21-30 MIN [id number] Diagnos is: ICD-10- CM E66.9 Obesity , unspeci fied
ROJAS HERBERT 10/28 Ladonna ROJAS [facility] C.Allie ROJAS [facility] HC PRO PHONE CALL 5-10 MIN [id number] Diagnos is: ICD-10- CM E66.9 Obesity , unspeci fied
ROJAS HERBERT 10/28 [place] ROJAS [facility] CNitish ROJAS [facility] Outpatient Encounter [id number] ROJAS HERBERT 10/28 Ladonna ROJAS [facility] CNitish ROJAS [facility] Outpatient Encounter [id number] GIFTY HUNT N 10/28 Ladonna ROJAS [facility] Ladonna ROJAS [facility] HC PRO PHONE CALL 5-10 MIN [id number] Diagnos is: ICD-10- CM E66.9 Obesity , unspeci fied
ROJAS HERBERT 11/03 Ladonna ROJAS [facility] Ladonna ROJAS [facility] HC PRO PHONE CALL 5-10 MIN [id number] Diagnos is: ICD-10- CM E66.9 Obesity , unspeci fied
ROJAS HERBERT Hawk 11/10 Ladonna ROJAS [facility] Ladonna ROJAS [facility] Outpatient Encounter [id number] WILLI BENNETT [place] 11/24 Ladonna ROJAS [facility] HC PRO PHONE CALL 5-10 MIN [id number] Diagnos is: ICD-10- CM E66.9 Obesity , unspeci fied
YVONNE PAYAN M 11/28 [facility] HC PRO PHONE CALL 5-10 MIN [id number] Diagnos is: ICD-10- CM E66.9 Obesity , unspeci fied
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
YVONNE PAYAN M 01/24 [facility] Ladonna ROJAS [facility] Outpatient Encounter [id number] 01/24 Ladonna ROJAS [facility] HC PRO PHONE CALL 5-10 MIN [id number] Diagnos is: ICD-10- CM E66.9 Obesity , unspeci fied
YVONNE PAYAN M 01/26 [facility] [place] [facility] OFFICE O/P EST MOD 30 MIN [id number] Diagnos is: ICD-10- CM H25.13 Age-rel ated nuclear catarac t, bilater al
FAITH,STEW ART J 02/15 [place] [facility] Ladonna ROJAS [facility] Outpatient Encounter [id number] SABRINA,[place] 04/04 Ladonna ROJAS [facility] Ladonna ROJAS [facility] Outpatient Encounter [id number] 04/10 Ladonna ROJAS [facility] Social History Combined list of available smoking, tobacco, and other social history from Department of Defense and Veterans Affairs facilities. 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 07/14/2017 [facility] History of tobacco use LIFETIME NON TOBA MARINE SUPERINTENDENT USER 12/04/2016 [facility] History of tobacco use LIFETIME NON-TOBA 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 Additional future care activities may be listed in the Assessment and Plan section. Date/Time Care Activity Care Activity Detail Facili ty 09/12/2024 AMBULATORY - NONE AMBULATORY - NONE [facility] 09/20/2024 AMBULATORY - NONE AMBULATORY - NONE [facility]
--- OUTSIDE RECORDS SUMMARY | 2024-04-12 14:45 | XMS_ITS | Encounter Summary ---
Author Name [facility] [place] Address [address] [place] [address] Care Team Providers Care Referral Management Liaison Name Role Phone FALGUNI WHITT Primary Care Provider UnavailDOUGLAS Smith Primary Care Provider Unavailab smith Insurance Providers: All historical and current Section Date Range: From patient's date of to the date document was created. This section includes the names of all active insurance providers for the patient. Insurance Provider Type of Coverage Plan Name Start of Policy Coverage End of Policy Coverage Group Number Member ID Insurance Provider's Telephone Number Policy Lynn's Name Patient's Relationship to Policy Lynn HUMANA MCR (WNR) MEDICARE ADVANTAGE [facility] (WNR) Sep 13, 2021 DO NOT BILL [id number] JACK HUMPHRIES PATIENT HUMANA MCR (WNR) MEDICARE ADVANTAGE MCR (WNR) Sep 13, 2017 [id number] JACK HUMPHRIES PATIENT HUMANA MCR (WNR) MEDICARE ADVANTAGE MCR (WNR) Sep 13, 2015 [id number] JACK HUMPHRIES PATIENT HUMANA MCR (WNR) MEDICARE ADVANTAGE [facility] (WNR) Sep 13, 2015 [id number] [phone] JACK HUMPHRIES PATIENT HUMANA MCR (WNR) MEDICARE ADVANTAGE MCR (WNR) Sep 13, 2015 [id number] JACK HUMPHRIES PATIENT AMANDAA MCR (WNR) MEDICARE ADVANTAGE [facility] (WNR) Sep 13, 2015 [id number] [phone] JACK HUMPHRIES PATIENT SIMON MCR (WNR) MEDICARE (M) HUMAN A INSUR ANCE COM Sep 13, 2013 [id number] [phone] JACK HUMPHRIES PATIENT MEDICARE PART D (WNR) MEDICARE (M) PART D Sep 13, 2021 PART D [id number] JACK HUMPHRIES PATIENT Selected Encounter This section includes the information on record at [place] for the Encounter. Date/Time Encounter Type Encounter Description Reason Provider Source Apr 04, 2024 12:38 PM Outpatient Encounter TELEPHONE TRIAGE CLARISSA BENNETT Encounter Template Text not used by [place] Plan of Treatment: Future Appointments (+ 6 months) and Future Tests (+/- 45 days) The Plan of Treatment section includes future care activities for the patient from all [place] treatmentfacilities. This section includes future appointments and future orders which are active, pending or scheduled. Future Appointments This section includes appointments that were scheduled to occur 6 months from the date of the Encounter, up to a maximum of 20 appointments. The data comes from all [place] treatment facilities. Appointment Date/Time Appointment Type Appointme nt Facility Name Sep 12, 2024 10:00 AM AMBULATORY - NONE [facility] Sep 20, 2024 10:30 AM AMBULATORY - NONE [facility] Encounter Notes: All associated encounter notes This section contains the clinical notes associated to the Encounter. Date/Time Encounter Note(s) Provider Source Apr 04, 2024 02:11 PM ADDENDUM: LOCAL TITLE: Addendum STANDARD TITLE: ADDENDUM DATE OF NOTE: APR 04, 2024@14:11:03 ENTRY DATE: APR 04, 2024@14:11:03 AUTHOR: FALGUNI WHITT EXP COSIGNER: URGENCY: STATUS: COMPLETED Requesting RN follow up with to triage symptoms as PT may not be appropriate if he has an acute injury that has not been evaluated, and also to obtain [facility] info (address, dates he will be in [place], contact info, etc) /stephania/ FALGUNI WHITT DO PRIMARY CARE PHYSICIAN Signed: 04/04/2024 14:12 Receipt Acknowledged By: 04/10/2024 15:58 /stephania/ HOSEA SMITH RN REGISTERED NURSE --- Original Document --- 04/04/24 CCC: CLINICAL TRIAGE: Patient Demographics Patient Name: JACK HUMPHRIES Patient Primary Address: [address] [place] [address] [address] [place] [address] Patient Primary Phone: [phone] Patient : 1945 Patient Age: 78 Caller/Recipient Relation to Patient: Self Emergency Contact: HERMINIAYENNY HUMPHRIES Triage Summary Conducted triage/discussed symptoms Pain Score: 4 Utilized the Triage Tool: Yes Chief Complaint: Shoulder Pain (one shoulder) System WHEN: Within 24 Hours Nurse's Recommendation / WHEN: Within 24 Hours System WHERE: Clinic Nurse's Recommendation / WHERE: [facility] Nurse's Other / WHERE: virtual care appointment Patient Disposition Patient/Caregiver agrees to plan of care: No Patient WHERE: Clinic/[facility] Patient WHEN: Within 3 days Nursing Plan and Disposition Other course(s) of action Generated msg to PACT/Provider Nurse Summary Nurse Summary: [place] called [facility] to report he fell x3 weeks ago and his R shoulder still hurts. reports now he is able to move the arm but unable to lift past the shoulder. Hurts more in the pm and while sleeping. Pain level during the day 7/10 but at night increases to 8-9/10. Tried aspirin and topical cream to alleviate the pain with little improvement. Completed triage with recommendation for office visit within 3 days/ virtual care appointment. verbalized understanding but declined both options. Service Dismantler informed about going to using [place] [facility] but declined as well. [place] reports he is in [place] at this time and would like to have referral to PT for R shoulder pain. could benefit from Traveling coordination as he reports lives in [place] half the year. Please advise. requesting call back at number listed. Thank you. Thank you for partnering in the care of our . As a member of the Clinical Contact Center, RN keno writer/runner does not provide follow-up care to local [place] healthcare systems. Local care team added to this alert for assistance with care coordination. Clinical Contact Center Codes Clinic/Location: V8 CWY PHONE CCC RN [facility] Triage Complete Triage Date: 04/04/2024, 12:25 PM Triage Note: Phone Triage 04 Apr 2024 16:19:04 +0000 [facility] Demographics 78 y/o Male Results CC: Shoulder Pain (one shoulder) Software suggested: Within 24 Hours Software suggested follow-up location: Clinic, consider virtual care Values and Measures Duration of CC: 3 Weeks Positive Responses HPI: shoulder pain, moderate to severe HPI: shoulder swelling, with shoulder pain HPI: skin swelling, shoulder, worsening VS: temperature not taken Negative Responses Denies: HPI: axillary lymphadenopathy Denies: HPI: shoulder injury, within past 2 days Denies: HPI: shoulder pain, severe Denies: HPI: skin erythema, shoulder Denies: HPI: skin lump, swollen, painful, over the shoulder Denies: MEDS: chemotherapy Denies: PMH: diabetes Denies: PMH: HIV positive Denies: PMH: sickle cell anemia Denies: PSH: organ transplant Denies: PSH: shoulder surgery, within past week /stephania/ ANNABEL DE LA PAZ Signed: 04/04/2024 12:39 Receipt Acknowledged By: 04/04/2024 14:10 /stephania/ FALGUNI WHITT DO PRIMARY CARE PHYSICIAN FALGUNI WHITT DEPT OF [facility] Apr 04, 2024 12:38 PM RN PROGRESS NOTE: LOCAL TITLE: CCC: CLINICAL TRIAGE STANDARD TITLE: RN PROGRESS NOTE DATE OF NOTE: APR 04, 2024@12:38:55 ENTRY DATE: APR 04, 2024@12:38:55 AUTHOR: CHANA WYNN EXP COSIGNER: URGENCY: STATUS: COMPLETED CCC: CLINICAL TRIAGE Has ADDENDA Patient Demographics Patient Name: JACK HUMPHRIES Patient Primary [address] [place] [address] Patient Primary Phone: [phone] Patient : 1945 Patient Age: 78 Caller/Recipient Relation to Patient: Self Emergency Contact: HERMINIAYENNY DE LA GARZAHUMPHRIES Triage Summary Conducted triage/discussed symptoms Pain Score: 4 Utilized the Triage Tool: Yes Chief Complaint: Shoulder Pain (one shoulder) System WHEN: Within 24 Hours Nurse's Recommendation / WHEN: Within 24 Hours System WHERE: Clinic Nurse's Recommendation / WHERE: [facility] Nurse's Other / WHERE: virtual care appointment Patient Disposition Patient/Caregiver agrees to plan of care: No Patient WHERE: Clinic/[facility] Patient WHEN: Within 3 days Nursing Plan and Disposition Other course(s) of action Generated msg to PACT/Provider Nurse Summary Nurse Summary: [place] called [facility] to report he fell x3 weeks ago and his R shoulder still hurts. reports now he is able to move the arm but unable to lift past the shoulder. Hurts more in the pm and while sleeping. Pain level during the day 7/10 but at night increases to 8-9/10. Tried aspirin and topical cream to alleviate the pain with little improvement. Completed triage with recommendation for office visit within 3 days/ virtual care appointment. verbalized understanding but declined both options. Service Dismantler informed about going to using [place] [facility] but declined as well. [place] reports he is in [place] at this time and would like to have referral to PT for R shoulder pain. [place] could benefit from Traveling coordination as he reports lives in [place] half the year. Please advise. [place] requesting call back at number listed. Thank you. Thank you for partnering in the care of our . As a member of the Clinical Contact Center, RN keno writer/runner does not provide follow-up care to local [place] healthcare systems. Local care team added to this alert for assistance with care coordination. Clinical Contact Center Codes Clinic/Location: V8 CWY PHONE CCC RN [facility] Triage Complete Triage Date: 04/04/2024, 12:25 PM Triage Note: Phone Triage 04 Apr 2024 16:19:04 +0000 [facility] Demographics 78 y/o Male Results CC: Shoulder Pain (one shoulder) Software suggested: Within 24 Hours Software suggested follow-up location: Clinic, consider [facility] care Values and Measures Duration of CC: 3 Weeks Positive Responses HPI: shoulder pain, moderate to severe HPI: shoulder swelling, with shoulder pain HPI: skin swelling, shoulder, worsening VS: temperature not taken Negative Responses Denies: HPI: axillary lymphadenopathy Denies: HPI: shoulder injury, within past 2 days Denies: HPI: shoulder pain, severe Denies: HPI: skin erythema, shoulder Denies: HPI: skin lump, swollen, painful, over the shoulder Denies: MEDS: chemotherapy Denies: PMH: diabetes Denies: PMH: HIV positive Denies: PMH: sickle cell anemia Denies: PSH: organ transplant Denies: PSH: shoulder surgery, within past week /stephania/ ANNABEL DE LA PAZ Signed: 04/04/2024 12:39 Receipt Acknowledged By: 04/04/2024 14:10 /stephania/ FALGUNI WHITT DO PRIMARY CARE PHYSICIAN 04/04/2024 ADDENDUM STATUS: COMPLETED Requesting RN follow up with to triage symptoms as PT may not be appropriate if he has an acute injury that has not been evaluated, and also to obtain [facility] info (address, dates he will be in [place], contact info, etc) /silke WHITT DO PRIMARY CARE PHYSICIAN Signed: 04/04/2024 14:12 Receipt Acknowledged By: * AWAITING SIGNATURE * HOSEA SMITH VANYA P C.W. BILL YOUNG DEPT OF [facility]
--- OUTSIDE RECORDS SUMMARY | 2024-04-12 14:46 | XMS_ITS | Encounter Summary ---
Author Name [facility] [place] Address [address] [place] [address] Care Team Providers Care Science Analyst Name Role Phone FALGUNI WHITT Primary Care [...] Policy Lynn HUMANA MCR (WNR) MEDICARE ADVANTAGE [facility] (WNR) Sep 13, 2021 DO NOT BILL [id number] JACK HERNANDEZ PATIENT HUMANA MCR (WNR) MEDICARE ADVANTAGE [facility] (WNR) Sep 13, 2017 [id number] JACK HERNANDEZ PATIENT HUMANA MCR (WNR) MEDICARE ADVANTAGE MCR (WNR) Sep 13, 2015 [id number] JACK HERNANDEZ PATIENT HUMANA MCR (WNR) MEDICARE ADVANTAGE [facility] (WNR) Sep 13, 2015 [id number] JACK HERNANDEZ PATIENT HUMANA MCR (WNR) MEDICARE ADVANTAGE MCR (WNR) Sep 13, 2015 [id number] JACK HERNANDEZ PATIENT SIMON MCR (WNR) MEDICARE ADVANTAGE MCR (WNR) Sep 13, 2015 [id number] [phone] JACK HERNANDEZ PATIENT SIMON MCR (WNR) MEDICARE (M) HUMAN A INSUR ANCE COM Sep 13, 2013 [id number] JACK HERNANDEZ PATIENT MEDICARE PART D (WNR) MEDICARE (M) PART D Sep 13, 2021 PART D [id number] JACK HERNANDEZ PATIENT Selected Encounter This section includes the information on record at [place] for the Encounter. Date/Time Encounter Type Encounter Description Reason Pro vider Source Apr 10, 2024 03:15 PM Outpatient Encounter TELEPHONE PRIMARY CARE IHE Encounter Template Text not used by [place] Plan of Treatment: Future Appointments (+ 6 months) and Future Tests (+/- 45 days) The Plan of Treatment section includes future care activities for the patient from all [place] treatmentfacilities. This section includes future appointments and future orders which are active, pending or scheduled. Future Appointments This section includes appointments that were scheduled to occur 6 months from the date of the Encounter, up to a maximum of 20 appointments. The data comes from all [place] treatment facilities. Appointment Date/Time Appointment Type Appointme nt Facility Name Sep 12, 2024 10:00 AM AMBULATORY - NONE [facility] Sep 20, 2024 10:30 AM AMBULATORY - NONE [facility] Encounter Notes: All associated encounter notes This section contains the clinical notes associated to the Encounter. Date/Time Encounter Note(s) Provider Source Apr 10, 2024 03:15 PM PRIMARY CARE NOTE: LOCAL TITLE: PACT CARE COORDINATION NOTE STANDARD TITLE: PRIMARY CARE NOTE DATE OF NOTE: APR 10, 2024@15:15 ENTRY DATE: APR 10, 2024@15:15:37 AUTHOR: HOSEA SMITH COSIGNER: URGENCY: STATUS: COMPLETED -- CARE COORDINATION -- CONTACT TYPE: Telephone Spoke with: Patient Patient Identifiers: Full name, REASON FOR CONTACT: Requesting RN follow up with to triage symptoms as PT may not be appropriate if he has an acute injury that has not been evaluated, and also to obtain [facility] info (address, dates he will be in [place], contact info, etc) /es/ DEV MADSEN [facility] PHYSICIAN CAN Score: 20/ EVALUATION/ASSESSMENT: Spoke to Mr. Hernandez, shares he went to [facility] in [place], [place] for evaluation of right shoulder injury. Endorses x-rays were completed in the ER, he was evaluated by an Orthopedic doctor who ordered MRI. He is scheduled to complete MRI on 04/12. At this time he does not need any assistance from the [facility], he is using his outside insurance for care. i did confirm information in his chart is correct for his [place] address. He will reach back out of he needs additional assistance. Provided him community care 72 hour phone number to call to report nonVA ER visit. ADVANCE DIRECTIVE: PERSONAL HEALTH GOALS: INTERVENTIONS: Reviewed with /caregiver how and when to contact teamlet during and after business hours FUTURE APPOINTMENTS: 09/12/2024 10:00 BRA LAB 09/20/2024 10:30 BRA PACT 7 WH TIME SPENT: Between 1-10 Minutes Exact Amount of Time (in minutes): 6 PATIENT EDUCATION TOPICS /stephania/ HOSEA SMITH RN REGISTERED NURSE Signed: 04/10/2024 15:58 HOSEA SMITH [place] [facility]
--- NOTE | 2024-04-12 15:30 | MR_ITS ---
[address] [address] Phone:?[phone] Fax:?[phone] Referring Physician Information: Sabrina White [address] [facility] [address] Phone:?[phone] Fax:?[phone] Patient:?Rob Hernandez D.O.B:?1945 Sex:?Male Phone:?[phone] [facility] MRN:?[id number] Exam Date:?04/12/2024 EXAM: MRI EXAMINATION OF THE RIGHT SHOULDER CLINICAL INFORMATION: Right shoulder pain. History of fall with injury. No history of surgery to this area. Evaluate rotator cuff tear. TECHNICAL INFORMATION: Coronal STIR as well as axial, sagittal and coronal PD and T2-weighted images acquired. No prior studies for comparison. INTERPRETATION: Bones: There is no Hill-Sachs impaction deformity. No other evidence for an occult fracture or osseous contusion. There is no other bone marrow edema pattern. Rotator Cuff: Series 8 images 5 through 7 as well as series 4 images 9 through 13 demonstrate a 2.2 cm AP full-thickness and near full-thickness tear involving the supraspinatus tendon insertion. Torn tendon fibers remain situated well lateral to the mid humeral head. There is no evidence for muscle belly atrophy. Mild to moderate directly adjacent infraspinatus tendinopathy. The teres minor tendon is intact. The subscapularis tendon is intact. No appreciable rotator cuff muscle belly atrophy. Coracoacromial arch: There is no discrete subacromial osseous spur. The bony acromiohumeral interval is measuring 9 mm. There is no thickening identified of the coracoacromial ligament. 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 Undersurface productive changes and resultant mild underlying supraspinatus deformity. Biceps tendon: The long head biceps tendon is intact and nondisplaced from the bicipital groove. No evidence for a tendon tear or any appreciable changes of tendinopathy. There is a mild to moderate appearance of bicipital tenosynovitis. Glenohumeral joint and labrum: No significant glenohumeral joint effusion. No discrete loose body within the joint. Osteochondral surfaces appear relatively preserved. There is tearing identified along the base of the superior aspect of the labrum. No other definite evidence for labral tear. No discrete paralabral cyst is identified. CONCLUSION: 1. There is a moderate-sized, 2.2 cm segment of full-thickness and near full- thickness tear involving the supraspinatus tendon insertion. Torn tendon fibers remain situated well lateral to the mid humeral head level. No muscle belly atrophy. 2. Mild to moderate directly adjacent infraspinatus tendinopathy. 3. 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 4. Unremarkable and intact long head biceps tendon, with mild to moderate tenosynovitis. 5. Tearing along the base of the superior labrum. No appreciable glenohumeral chondromalacia. KES Electronically signed on 04/13/2024 7:53:00 AM by Abhinav Mckinley M.D.
== END 2024-04-12 14:42 | disposition home or self-care (01) ==
LOC: MRI 14:43
PROVIDERS: Visit Provider Physician Assistant
DX: M25.511 Pain in right shoulder (principal); M75.101 Unspecified rotator cuff tear or rupture of right shoulder, not specified as traumatic; M19.011 Primary osteoarthritis, right shoulder; S43.431A Superior glenoid labrum lesion of right shoulder, initial encounter; S49.91XA Unspecified injury of right shoulder and upper arm, initial encounter
CPT/HCPCS: 73221

== ENCOUNTER 2025-04-03 08:44 | Outpatient (CLI) | payer OTHER, SELFPAY | END 2025-04-03 08:45 | disposition home or self-care (01) | LOC: NFLDREF 04-04 16:33 | PROVIDERS: Visit Provider Emergency Medicine | DX: Z01.818 Encounter for other preprocedural examination (principal) | CPT/HCPCS: 80053 ==

== ENCOUNTER 2025-04-09 07:25 | Day surgery (SDC) | payer OTHER, SELFPAY ==
[2025-04-09] VITALS (12 sets, daily range): BP systolic 87–122; BP diastolic 53–70; PULSE 55–79; RESP 14–16; TEMP 35.9–36.4; O2SAT 94–99; BMI 35.4
[2025-04-09] MEDS: SODIUM CHLORIDE 0.9 % (FLUSH) 10 ML SYRINGE IVF (08:05)
[2025-04-09] MEDS: LACTATED RINGERS 1000 ML 1,000 ML 100 ML IV ×2 (08:05→10:18)
--- NOTE | 2025-04-09 09:25 | W.PM.H&PU ---
History & Physical Update History & Physical Update H&P Reviewed and patient assessed: No changes noted
[2025-04-09] MEDS: ROPIVACAINE 0.5% 30 ML 150 MG INJECTION (09:50)
--- NOTE | 2025-04-09 09:55 | PM.ORPRC ---
Procedure Note Date of procedure: 04/09/25 Procedure: PREOPERATIVE DIAGNOSIS: 1. Right knee medial meniscus tear POSTOPERATIVE DIAGNOSIS: 1. Right knee medial meniscus tear 2. Right knee medial synovial plica PROCEDURE: 1. Right knee arthroscopic partial medial meniscectomy 2. Right knee arthroscopic limited synovectomy (plica excision) SURGEON: Kevin Gomez M.D. EVENTS ASSISTANT: Donald Lester PA-C. Of note, an embroidery assistant was critical for this case to aid in patient positioning, knee manipulation, instrument exchange, and closure. ANESTHESIA: Spinal EBL: 2ml TOURNIQUET: 30 min at 300 torr COMPLICATIONS: None evident INDICATIONS: The patient is a pleasant 79-year-old male who has experienced right knee pain particularly with any twisting or turning. Physical exam was concerning for medial meniscus tear, this was confirmed on MRI. Additionally, attempted nonoperative management has been tried, and failed. Thus, surgery was recommended. FINDINGS: Complex tearing of the posterior horn to midbody medial meniscus 6. Posterior root was otherwise intact. Lateral meniscus intact. Intact lateral articular cartilage. 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 Patellofemoral compartment showed grade 2 chondromalacia overall. Intact ACL and PCL. Firm/prominent plica along the anteromedial knee component with some grooving into the femur. DESCRIPTION OF PROCEDURE: After a thorough discussion of risks, benefits, and alternatives, the patient was brought to the operating room and placed upon the operating table. Induction of anesthesia was undertaken as previously noted. 2g iv Ancef was administered within 1 hr of incision preoperatively. Appropriate time-out was performed identifying proper patient, site, and procedure. The right lower extremity was prepped and draped in the appropriate sterile fashion using ChloraPrep. The limb was exsanguinated and tourniquet inflated. Anterolateral and anteromedial portals were established with an 11 blade, and a diagnostic arthroscopy was performed. This identified the findings as noted above. Following the diagnostic arthroscopy, a partial medial menisectomy was performed with the combination of basket forceps and a motorized shaver. Following this, the meniscus was re-probed and found to be stable. Approximately 25-33 % of the overall meniscus required resection. In addition, the medial plica was probed and found to be somewhat firm/prominent. This showed some grooving into the femur. While that was not appreciated preoperatively, it was felt to be in the area of his symptoms and therefore felt prudent to resect this plica in addition to the meniscus work, thus the limited synovectomy. At this stage, the shaver was reinserted into the suprapatellar pouch and all remaining meniscal debris was evacuated. Instruments were removed, excess fluid was drained, and closure performed with 4-0 Monocryl with Steri-Strips. Dressings were applied, the tourniquet deflated, and the patient was awoken from anesthesia and transferred to the PACU in stable condition. PLAN: 1. Weightbear as tolerated operative extremity. Crutch / walker ambulation assistance PRN. 2. Ice, acetominophen and/or ibuprofen, and Oxycodone for pain as needed. 3. Knee range of motion and quad sets/straight leg raise regularly 4. Follow up with PA visit in 1-2 weeks for a wound check and possibly to initiate physical therapy.
--- NOTE | 2025-04-09 10:11 | P.ANES_ITS ---
Anesthesia Charges Start Date/Time Anesthesia Start Date: 04/09/25 Anesthesia Start Time: 09:02 Stop Date/Time Anesthesia Stop Date: 04/09/25 Anesthesia Stop Time: 10:13 Summary Extremes of Age - Over 70 or under 1: BRUSH CLEANER Coding CPT Codes CPT Codes: ANESTH KNEE JOINT SURGERY - 49345 ([id number]) P2 - PATIENT W/MILD SYST DISEASE, QZ - BRUSH CLEANER SVC W/O SENIOR WAREHOUSE CLERK BY Additional Codes: Summary - Extremes of Age - Over 70 or under 1: BRUSH CLEANER ([id number])
--- NOTE | 2025-04-09 10:11 | W.ANESCHARGE ---
Anesthesia Charges Start Date/Time Anesthesia Start Date: 04/09/25 Anesthesia Start Time: 09:02 Stop Date/Time Anesthesia Stop Date: 04/09/25 Anesthesia Stop Time: 10:13 Summary Extremes of Age - Over 70 or under 1: TEACHER VOCAL Coding CPT Codes CPT Codes: ANESTH KNEE JOINT SURGERY - 68134 ([id number]) P2 - PATIENT W/MILD SYST DISEASE, QZ - TEACHER VOCAL SVC W/O NEUROSURGICAL NURSE BY Additional Codes: Summary - Extremes of Age - Over 70 or under 1: TEACHER VOCAL ([id number])
== END 2025-04-09 12:01 | disposition home or self-care (01) ==
LOC: OR 07:26
PROVIDERS: Visit Provider Orthopaedic Surgery Sports Medicine
PROC: (CPT 29870; principal; 2025-04-09 09:00)
DX: S83.231A Complex tear of medial meniscus, current injury, right knee, initial encounter (principal); M94.261 Chondromalacia, right knee
CPT/HCPCS: 29881; 29875; 01400; 99100; J0690; J1100; J2250; J2405; J2704; J2795; J3010; J7120